=== PATIENT | male | born 1955 | race Caucasian/White ===

== ENCOUNTER 2018-05-02 10:54 | Day surgery (SDC) | payer OTHER ==
[~2018-05-02 10:54] MED LIST: ASPI81CH PO; Amlodipine Besyl5 MG PO; Hydrochloroth12.5 MG PO; METO50ER PO; MULVITMIND PO
[2018-05-02 12:15] LABS: Performing Lab VERACYTE; Test Name FNA
== END 2018-05-02 22:39 | disposition home or self-care (01) ==
LOC: US 10:54
PROVIDERS: Radiology Diagnostic Radiology
PROC: 0GBH3ZX Excision of Right Thyroid Gland Lobe, Percutaneous Approach, Diagnostic (ICD-10-PCS; principal; 2018-05-02)
DX: E04.1 Nontoxic single thyroid nodule (principal); Z85.6 Personal history of leukemia
CPT/HCPCS: 10022; 76942

== ENCOUNTER 2018-07-18 09:30 | Day surgery (SDC) | payer OTHER ==
[~2018-07-18 09:30] MED LIST changes: +CYCL10 PO; +OXYC1TAB11; +Percocet 5-3251 EACH PO
== END 2018-07-18 22:41 | disposition home or self-care (01) ==
LOC: CT 09:30
PROC: 0QB03ZX Excision of Lumbar Vertebra, Percutaneous Approach, Diagnostic (ICD-10-PCS; principal; 2018-07-18)
DX: M89.9 Disorder of bone, unspecified (principal); C91.00 Acute lymphoblastic leukemia not having achieved remission; C34.31 Malignant neoplasm of lower lobe, right bronchus or lung; C77.3 Secondary and unspecified malignant neoplasm of axilla and upper limb lymph nodes; C77.2 Secondary and unspecified malignant neoplasm of intra-abdominal lymph nodes; C77.1 Secondary and unspecified malignant neoplasm of intrathoracic lymph nodes; Z87.891 Personal history of nicotine dependence; I10 Essential (primary) hypertension; C91.10 Chronic lymphocytic leukemia of B-cell type not having achieved remission
CPT/HCPCS: 20225; 77012; 88305; 88341; 88342

== ENCOUNTER 2018-08-01 00:04 | Emergency (ER) | payer OTHER ==
[~2018-08-01] VITALS: Ht 182.9 cm; Wt 85.7 kg
[2018-08-01 00:27] LABS: BASOPHILS ABSOLUTE AUTO 0.03 K/mm3 (0.00-0.23); BASOPHILS PERCENT AUTO 0 % (0-2); EOSINOPHILS ABSOLUTE AUTO 0.28 K/mm3 (0.00-0.68); EOSINOPHILS PERCENT AUTO 2 % (0-6); Hematocrit 43.5 % (37.0-53.0); Hemoglobin 14.8 g/dL (13.5-17.5); IMMATURE GRAN ABSOLUTE AUTO 0.08 K/mm3 (0.00-0.10); IMMATURE GRAN PERCENT AUTO 1 % (0-1); LYMPHOCYTES ABSOLUTE AUTO 0.65 K/mm3 (0.84-5.20); LYMPHOCYTES PERCENT AUTO 4 % (21-46); MONOCYTES ABSOLUTE AUTO 1.97 K/mm3 (0.16-1.47); MONOCYTES PERCENT AUTO 12 % (4-13); Mean Corpuscular HGB 29.7 pg (26.0-34.0); Mean Corpuscular Volume 87 fL (80-100); Mean Platelet Volume 11.1 fL (9.1-12.4); NEUTROPHILS ABSOLUTE AUTO 13.06 K/mm3 (1.96-9.15); NEUTROPHILS PERCENT AUTO 81 % (41-73); Platelet Count 229 K/mm3 (150-400); RDW Coefficient Variation 13.8 % (11.7-14.2); RDW Standard Deviation 43.7 fL (35.1-46.3); Red Blood Cell Count 4.99 M/mm3 (4.30-5.90); White Blood Cell Count 16.07 K/mm3 (4.00-11.30)
[2018-08-01 00:45] LABS: Calcium, Ionized (POC) 1.12 mmol/L (1.10-1.46); Chloride (POC) 100 mmol/L (98-108); Glucose (ISTAT POC) 137 mg/dL (70-99); Hemoglobin (POC) 12.6 g/dL (13.5-17.5); Potassium (POC) 3.7 mmol/L (3.5-5.5); Sodium (POC) 135 mmol/L (135-148); Total CO2 (POC) 22 mmol/L (21-32)
[2018-08-01 00:47] LABS: Alanine Aminotransfer (ALT/SGP 51 U/L (12-78); Albumin, Blood 3.4 g/dL (3.4-5.0); Albumin/Globulin Ratio 0.9 (0.8-1.8); Alk Phos 152 U/L (50-136); Anion Gap 12 mmol/L (6-16); Aspartate Aminotrans (AST/SGOT 28 U/L (12-37); Bilirubin, Total 0.6 mg/dL (0.1-1.0); Blood Urea Nitrogen 22 mg/dL (8-24); Bun/Creatinine Ratio 19.6 (12.0-20.0); CO2, Blood 24 mmol/L (21-32); Chloride, Blood 101 mmol/L (98-108); Creatinine, Blood 1.12 mg/dL (0.60-1.20); Globulin, Blood 3.7 g/dL (2.2-4.0); Glomerular Filtration Rate >60 (60-); Glucose, Blood 135 mg/dL (70-99); Potassium, Blood 3.9 mmol/L (3.5-5.5); Sodium, Blood 137 mmol/L (136-145); Total Protein, Blood 7.1 g/dL (6.4-8.2)
[2018-08-01 02:22] LABS: International Normalized Ratio 1.03; Prothrombin Time Results 10.6 Sec (9.7-11.5)
== END 2018-08-01 03:21 | disposition short-term general hospital (02) ==
LOC: ER 00:04
PROVIDERS: Emergency Medicine
DX: J96.91 Respiratory failure, unspecified with hypoxia (principal); I26.92 Saddle embolus of pulmonary artery without acute cor pulmonale; J90 Pleural effusion, not elsewhere classified; E87.2 Acidosis; J98.4 Other disorders of lung; Z79.899 Other long term (current) drug therapy; Z79.82 Long term (current) use of aspirin; Z87.891 Personal history of nicotine dependence
CPT/HCPCS: 36415; 71045; 71260; 80047; 80053; 83605; 83880; 84484; 85014; 85025; 85610; 85730; 93005; 93010; 96365; 96367; 99285-25; J1644; J2543; J2997; J3370; J7030; Q9967

== ENCOUNTER 2018-10-21 14:43 | Day surgery (SDC) | payer OTHER ==
[~2018-10-21 14:43] MED LIST changes: +Acetaminophen325 M1 PO; +DEXA4 PO; +DOCU100 PO; +Dazidox10 MG PO; +GAVILAX17 GM PO; +LIDOCAINE 5% TOP; -OXYC1TAB11; +Oxycodone HCl20 M1 PO; +ROXICODONE5 MG PO; +SENN187 PO; +TEMA15 PO; +WARF5 PO; +XARELTO20 MG PO
== END 2018-10-21 22:46 | disposition home or self-care (01) ==
LOC: US 14:43
DX: J90 Pleural effusion, not elsewhere classified (principal); C34.31 Malignant neoplasm of lower lobe, right bronchus or lung; C78.7 Secondary malignant neoplasm of liver and intrahepatic bile duct
CPT/HCPCS: 76604

== ENCOUNTER 2018-10-23 16:05 | Inpatient (IN) | payer OTHER ==
[~2018-10-23] VITALS: Ht 177.8 cm; Wt 73.2 kg
[2018-10-23 16:09] LABS: PCO2 Arterial 32.8 mmHg (35-45); pH Blood Arterial 7.36 (7.35-7.45)
[2018-10-23 16:10] LABS: PO2 Arterial 48.8 mmHg (80-100)
[2018-10-23 16:20] LABS: BASOPHILS ABSOLUTE AUTO 0.02 K/mm3 (0.00-0.23); BASOPHILS PERCENT AUTO 0 % (0-2); EOSINOPHILS ABSOLUTE AUTO 0.01 K/mm3 (0.00-0.68); EOSINOPHILS PERCENT AUTO 0 % (0-6); Hematocrit 29.9 % (37.0-53.0); Hemoglobin 9.4 g/dL (13.5-17.5); IMMATURE GRAN ABSOLUTE AUTO 0.16 K/mm3 (0.00-0.10); IMMATURE GRAN PERCENT AUTO 1 % (0-1); LYMPHOCYTES ABSOLUTE AUTO 0.18 K/mm3 (0.84-5.20); LYMPHOCYTES PERCENT AUTO 2 % (21-46); MONOCYTES ABSOLUTE AUTO 1.12 K/mm3 (0.16-1.47); MONOCYTES PERCENT AUTO 9 % (4-13); Mean Corpuscular HGB 29.3 pg (26.0-34.0); Mean Corpuscular HGB Conc 31.4 g/dL (31.5-36.5); Mean Corpuscular Volume 93 fL (80-100); Mean Platelet Volume 10.6 fL (9.1-12.4); NEUTROPHILS ABSOLUTE AUTO 10.59 K/mm3 (1.96-9.15); NEUTROPHILS PERCENT AUTO 88 % (41-73); NRBC ABSOLUTE 0.08 K/mm3 (0.00-0.02); NRBC Auto 0.7 /100 WBC (0.0-0.2); Platelet Count 237 K/mm3 (150-400); RDW Coefficient Variation 20.1 % (11.7-14.2); RDW Standard Deviation 54.6 fL (35.1-46.3); Red Blood Cell Count 3.21 M/mm3 (4.30-5.90); White Blood Cell Count 12.08 K/mm3 (4.00-11.30)
[2018-10-23] MEDS ORDERED: METO50 PO (16:34)
[2018-10-23] MEDS ORDERED: FOLI400 PO (16:35)
[2018-10-23 16:37] LABS: Alanine Aminotransfer (ALT/SGP 56 U/L (12-78); Albumin, Blood 2.7 g/dL (3.4-5.0); Albumin/Globulin Ratio 0.8 (0.8-1.8); Alk Phos 243 U/L (50-136); Anion Gap 13 mmol/L (6-16); Aspartate Aminotrans (AST/SGOT 43 U/L (12-37); Bilirubin, Total 0.6 mg/dL (0.1-1.0); Blood Urea Nitrogen 27 mg/dL (8-24); Bun/Creatinine Ratio 50.4 (12.0-20.0); CO2, Blood 18 mmol/L (21-32); Calcium, Blood 7.3 mg/dL (8.5-10.1); Chloride, Blood 100 mmol/L (98-108); Creatinine, Blood 0.54 mg/dL (0.60-1.20); Globulin, Blood 3.5 g/dL (2.2-4.0); Glomerular Filtration Rate >60 (60-); Glucose, Blood 298 mg/dL (70-99); Potassium, Blood 5.2 mmol/L (3.5-5.5); Sodium, Blood 131 mmol/L (136-145); Total Protein, Blood 6.2 g/dL (6.4-8.2)
[2018-10-23 17:24] LABS: Source, Urine Catheter
[2018-10-23 17:48] LABS: Appearance, Urine Clear (Clear); Bilirubin, Urine Neg (Neg); Blood, Urine 1+ (Neg); Color, Urine Yellow (P-Yellow); Glucose Qualitative, Urine 3+ (Neg); Ketones, Urine 1+ (Neg); Leukocyte Esterase, Urine Neg (Neg); Nitrite, Urine Neg (Neg); Protein, Urine 2+ (Neg); Urobilinogen, Urine 2+ (Normal)
[2018-10-23 17:59] LABS: Red Blood Cells, Urine 0-2 /hpf (0-2); White Blood Cells, Urine 0-2 /hpf (0-5)
[2018-10-23 18:00] LABS: Bacteria Not Seen /hpf; Squamous Epithelial Cells Few /hpf (Few)
--- NOTE | 2018-10-23 20:00 | NUR ---
Admission/[facility] of Care: Patient arrived to unit via stretcher accompanied by ED nurse and RT. Arrived on BiPAP 10/08, 40% FiO2, O2-93-96%, all other VSS. Pt tolerated very short break from BiPAP to take PO pills, but work of breathing slowly increased while off mask. Pt states to feel slightly SOB, but that breathing has greatly improved since arrival to ED. C/o chronic pain to back and hips, plan to give prn oxycodone. Peripheral IV's patent and intact. Heparin bolus given (5,000u), and gtt started at 15u/kg/hr dosed at 75kg. Pleasant and cooperative with staff, call light in reach, makes needs known. Will continue to monitor for pain, comfort, safety.
[2018-10-23 21:08] LABS: PCO2 Arterial 31.3 mmHg (35-45); PO2 Arterial 82.5 mmHg (80-100); pH Blood Arterial 7.47 (7.35-7.45)
[2018-10-23] MEDS ORDERED: Oxycontin20 MG PO (21:30)
[2018-10-23] MEDS ORDERED: LORA.5 PO (21:33)
[2018-10-24 03:32] LABS: BASOPHILS ABSOLUTE AUTO 0.01 K/mm3 (0.00-0.23); BASOPHILS PERCENT AUTO 0 % (0-2); EOSINOPHILS PERCENT AUTO 0 % (0-6); Hematocrit 26.4 % (37.0-53.0); Hemoglobin 8.5 g/dL (13.5-17.5); IMMATURE GRAN ABSOLUTE AUTO 0.09 K/mm3 (0.00-0.10); IMMATURE GRAN PERCENT AUTO 1 % (0-1); LYMPHOCYTES ABSOLUTE AUTO 0.24 K/mm3 (0.84-5.20); LYMPHOCYTES PERCENT AUTO 3 % (21-46); MONOCYTES ABSOLUTE AUTO 0.82 K/mm3 (0.16-1.47); MONOCYTES PERCENT AUTO 9 % (4-13); Mean Corpuscular HGB Conc 32.2 g/dL (31.5-36.5); NEUTROPHILS ABSOLUTE AUTO 8.23 K/mm3 (1.96-9.15); NEUTROPHILS PERCENT AUTO 88 % (41-73); Platelet Count 155 K/mm3 (150-400); RDW Coefficient Variation 20.2 % (11.7-14.2); RDW Standard Deviation 52.2 fL (35.1-46.3); Red Blood Cell Count 2.93 M/mm3 (4.30-5.90); White Blood Cell Count 9.39 K/mm3 (4.00-11.30)
[2018-10-24 03:47] LABS: Mean Corpuscular Volume 90 fL (80-100)
[2018-10-24 03:49] LABS: Albumin, Blood 2.5 g/dL (3.4-5.0); Anion Gap 12 mmol/L (6-16); Blood Urea Nitrogen 18 mg/dL (8-24); Bun/Creatinine Ratio 34.2 (12.0-20.0); CO2, Blood 22 mmol/L (21-32); Calcium, Blood 7.1 mg/dL (8.5-10.1); Chloride, Blood 102 mmol/L (98-108); Creatinine, Blood 0.53 mg/dL (0.60-1.20); Glomerular Filtration Rate >60 (60-); Glucose, Blood 114 mg/dL (70-99); Potassium, Blood 4.8 mmol/L (3.5-5.5); Sodium, Blood 136 mmol/L (136-145)
[2018-10-24 05:05] LABS: PCO2 Arterial 27.5 mmHg (35-45); pH Blood Arterial 7.51 (7.35-7.45)
--- NOTE | 2018-10-24 05:46 | NUR ---
Shift Summary: Patient continued on BiPAP 10/05, FiO2 decreased from 40% to 30% throughout shift. Patient could only tolerate very short break from BiPAP early in shift, but has now been of BiPAP for approx 1hr, now on 15L/high-flow NC, tolerating well. Dyspnea/SOB with exertion but states to fell comfortable at rest. O2- 92-97%, VSS. No further c/o pain/discomfort at rest, but some pain to back/hips with repositioning. Tolerating PO fluids without difficulty, voiding using urinal in bed. Peripheral IV's patent and intact. Morning labs showed phosphorus 2.0, received order per Dr. Melo for PO neutra-phos 250mg x1. PTT this morning of 44.7, heparin gtt increased from 15u/kg/hr to 17u/kg/hr per pharmacy, next PTT at 1100hr. Pleasant and cooperative with staff, makes needs known. Will continue to monitor until report to day shift RN.
--- NOTE | 2018-10-24 08:48 | NUR ---
0700: CARE ASSUMED, PT REPOSITIONED IN BED, SPO2 DECREASED TO 87% WITH MAX ASSIST TO REPOSITION, SLOWLY RETURNS TO 97% WITH REST AND NO MOVEMENT OR TALKING. RR 30'S, SPO2 NOW 97% ON 15L/HI FLOW NC. HEPARIN INFUSING AT 17U/KG/HR PER ORDERS. DR. FONSECA IN TO SEE PT, AT BEDSIDE. 0800: ASSESSMENT COMPLETED, HR 120'S SINUS TACH, OTHER VSS AT THIS TIME. PT DENIES CHEST PAIN/PRESSURE, OR OTHER PAIN, REMAINS EXTREMELY SOB WITH ANY MOVEMENT OR TALKING, ONLY ABLE TO SPEAK IN 3-4 WORD SENTENCES. LE'S ELEVATED ON PILLOWS, TOES ON RIGHT FOOT PURPLE IN COLOR, COOL TO TOUCH, CAP REFILL SLUGGISH. TOES ON LEFT FOOT DARK PURPLE, COLD TO TOUCH, CAP REFILL SLUGGISH, DR. FONSECA AWARE. PT RECEIVING BEDSIDE ECHO AT THIS TIME. 0830: DR. FLETCHER IN TO SEE PT AND TO CONSULT WITH DR. FONSECA. ECHO COMPLETED, TOLERATED WELL BY PT. SPO2 97%, PT RESTING WITH EYES CLOSED.
--- NOTE | 2018-10-24 09:56 | NUR ---
0955: ORAL MEDICATIONS TOLERATED WELL, PT ABLE TO TAKE THEM WITHOUT DESAT.PT RECEIVING DOPPLER US AT THIS TIME. HR 115, OTHER VSS.
--- NOTE | 2018-10-24 10:23 | NUR ---
1015: US COMPLETED, DR. FLETCHER AWARE OF PRELIMINARY RESULTS. DR. ACUÑA AT BEDSIDE TO DISCUSS PLAN OF CARE WITH PT AND CONSULT WITH DR. FLETCHER.
--- NOTE | 2018-10-24 12:13 | NUR ---
1200: 'Marti HAVE DISCUSSED PLAN OF CARE AND PROGNOSIS WITH PT, CODE STATUS CHANGED TO DNR/DNI. PT REPOSITIONED IN BED, HEPARIN GTT DC'D, LOVENOX ADMINISTERED PER ORDERS. PT'S FAMILY MEMBER AT BEDSIDE, PT DENIES OTHER NEEDS AT THIS TIME.
--- NOTE | 2018-10-24 14:40 | NUR ---
1330: PUDDING AND CHICKEN BROTH GIVEN PER PT REQUEST, PT DENIES OTHER NEEDS. 1420: NASAL SPRAY ADMINISTERED PER ORDERS FOR NASAL CONGESTION, OXYCODONE ADMINISTERED FOR BACK PAIN 03/10. PT DENIES OTHER NEEDS AT THIS TIME, CONTINUES TO EAT PUDDING, DENIES NAUSEA/ABDOMINAL DISCOMFORT.
--- NOTE | 2018-10-24 17:20 | NUR ---
1600: BED BATH GIVEN, HAIR WASHED, PT BRUSHED OWN TEETH, LINENS CHANGED. PT TOLERATED MODERATELY WELL, SPO2 DECREASED TO 88% AT FINISH OF CARES, PT RECOVERED TO MID 90% AFTER 5 MINUTES OF REST. PT REPOSITIONED IN BED, IS NOW RESTING QUIETLY, HR 110'S, SPO2 HIGH 90% ON HEATED HI FLOW NC, SETTINGS REMAIN 40L, FIO2 50%, 34 DEGREES. PT DENIES NEEDS AT THIS TIME.
--- NOTE | 2018-10-24 18:23 | NUR ---
1800: PT HAS BEEN RESTING IN BED WIT EYES CLOSED, VSS. DINNER TRAY ARRIVED, PT REPOSITIONED AND SAT UP IN BED TO EAT, DENIES NEEDS OR C/O. 1825: PT REPORTS THAT "NOTHING TASTES GOOD," ONLY BITES OF DINNER TRAY EATEN. AT BEDSIDE WITH SNACKS TO ENCOURAGE PT TO EAT. VSS, SPO2 95% HEATED HI FLOW NC, SETTINGS UNCHANGED. HR 120'S, OTHER VSS. PT AWAKE AND ALERT, PLEASANT AND COOPERATIVE WITH CARE, DENIES NEEDS AT THIS TIME. REPORT TO ONCOMING SHIFT.
--- NOTE | 2018-10-24 19:34 | NUR ---
ASSUMED CARE OF PT, BEDSIDE REPORT RECEIVED. PT IS RESTING QUIETLY RECLINING IN BED. DENIES N/V, DENIES CP/PRESSURE, STATES SOB/DYSPNEA CONTINUES BUT IS IMPROVING SLOWLY. SATS MAINTAINING WITH HEATED HIGH FLOW O2, SENTANCES ARE SHORT WITH INCREASED WORK OF BREATHING VISIBLE AFTER TURNING PT TO REMOVE BEDPAN. SPOUSE AT BEDSIDE. HRR, SINUS TACH ON MONITOR, BP MAINTAINING, TOES TO BILAT FEET ARE PURPLE, FEET ARE PALE AND COOL, PULSES ARE FAINT BUT PALPABLE. ABD SOFT, NONTENDER, BOWEL TONES NORMOACTIVE X 4.
--- NOTE | 2018-10-25 06:31 | NUR ---
PT CONTINUES TO MAINTAIN SATS WITH HIGH FLOW NASAL CANNULA AT 40 L/MIN AND FIO2 OF 50%. INCREASED WORK OF BREATHING CONTINUES TO BE EVIDENT WITH INCREASES IN ACTIVITY HOWEVER PT STATES THAT HE FEELS HIS BREATHING HAS IMPROVED. DENIES N/V THROUGHOUT SHIFT, DENIES CP/PRESSURE, DOES HAVE BACK PAIN AND WAS MEDICATED WITH OXYCODONE 10 MG PRIOR TO HS MEDS, PAIN WAS CONTROLLED TO 3/10, PAIN REMAINED CONTROLLED AT 0500 THIS AM.
--- NOTE | 2018-10-25 09:28 | NUR ---
0715: CARE ASSUMED, ASSESSMENT COMPLETED. PT A&OX4, HOB ELEVATED, PT ABLE TO SPEAK IN FULL SENTENCES THIS MORNING. HR 110-120'S, SPO2 95% WHILE SPEAKIN ON HEATED HI FLOW NC 40L, FIO2 49%, TEMP 34 DEGREES. BILAT ANKLES REMAIN EDEMATOUS, CYANOSIS TO TOES ON BOTH FEET SEEMS TO BE DECREASING, TOES ARE WARM TO TOUCH. LS DIM ON RIGHT, CLEAR ON LEFT. DR. FONSECA AT BEDSIDE. 0810: PT SITTING UP IN BED FOR BREAKFAST, REPORTS BILAT LEG AND BACK PAIN 6/10, MEDICATED WITH OXYCODONE PER ORDERS. PT DENIES OTHER NEEDS. 0920: PT'S APPETITE GOOD THIS MORNING, TOLERATED BREAKFAST WELL. SPO2 97% AFTER EATING, PT REMAINS ABLE TO SPEAK IN FULL SENTENCES.
--- NOTE | 2018-10-25 12:22 | NUR ---
1000: PT RESTING IN BED WITH EYES CLOSED, SNORING LIGHTLY. SP02 97%, PT RESPIRATIONS EVEN AND UNLABORED, PT APPEARS COMFORTABLE. 1210: PT SITTING UP IN BED, REPORTS BACK AND BILAT LEG PAIN 4/10, OXYCODONE ADMINISTERED PER ORDERS. LUNCH GIVEN, PT AND HIS EATING LUNCH IN ROOM TOGETHER. PT DENIES OTHER NEEDS. LS REMAIN UNCHANGED, HR 80'S - 90'S SINUS RHYTHM, SPO2 HIGH 90'S, HEATED HIGH FLOW NC REMAINS UNCHANGED.
--- NOTE | 2018-10-25 14:10 | NUR ---
1330: DR. GAMING AT BEDSIDE. 1400: PT ASSISTED ONTO BEDPAN FOR A SMALL, SOFT BM. SPO2 DECREASED TO 89%, PT RECOVERED QUICKLY WITH REST AND HOB ELEVATED. PT DENIES OTHER NEEDS AT THIS TIME.
--- NOTE | 2018-10-25 16:29 | NUR ---
1620: VSS, O2 SETTINGS UNCHANGED, PT DENIES SOB AT THIS TIME NO COUGH NOTED. PT REPORTS BACK AND LE PAIN 5/10, MEDICATED WITH OXYCODONE PER ORDERS. PT DENIES OTHER NEEDS AT THIS TIME. LS UNCHANGED, HR 80'S - 90'S NSR, TOES WARM AND COLOR CONTINUES TO IMPROVE.
--- NOTE | 2018-10-25 17:45 | NUR ---
1745: BED BATH GIVEN, PT TOLERATED WELL, SPO2 95% AFTER COMPLETION OF BATH. GOWN AND BEDDING CHANGED, PT REPOSITIONED, IS NOW SITTING UP IN BED EATING DINNER. DENIES NEEDS AT THIS TIME, VSS.
--- NOTE | 2018-10-25 18:23 | NUR ---
1814: DINNER TOLERATED WELL, PT'S APPETITE IMPROVED TODAY FROM YESTERDAY. PT DRANK 100% OF ENSURE. TEETH BRUSHED, PT REPOSITIONED FOR COMFORT, IS NOW SITTING UP IN BED WATCHING TV, DENIES NEEDS AT THIS TIME. HR 110-120, OTHER VSS. REPORT TO ONCOMING SHIFT.
--- NOTE | 2018-10-25 20:18 | NUR ---
ASSUMED CARE PT ALERT AND ORIENTED X4. PT REPORTS GENERALIZED WEAKNESS BUT STATES HE HAS BEEN BETTER ABLE TO REPOSITION SELF TODAY. PT DENIES PAIN AT THIS TIME. O2 SATS 96% ON HFNC, 40L/49%/34 DEGREES. PT'S AT BEDSIDE. 18 G IV IN R AC SL. PT HAS CYANOTIC TOES BILATERALLY. TOES FEEL WARM TO THE TOUCH AND PER OFF GOING NURSE PT'S COLOR HAS VASTLY IMPROVED. SEE FULL SHIFT ASSESSMENT.
--- NOTE | 2018-10-26 02:06 | NUR ---
REPORT FROM KILO ADLER. PT VSS. PT HAD REQUESTED CURTAINS CLOSED AND LIGHTS OUT PER KILO ADLER. WILL RESPECT PT REQUEST AND ALLOW TO SLEEP. WILL CONTINUE TO MONITOR.
--- NOTE | 2018-10-26 03:45 | NUR ---
PT AWAKENED EASILY TO TELEMARKETER AT BEDSIDE. INTRODUCED SELF TO PT. PT A+O X4 AND PLEASANT. VSS. RETURNED CURTAIN TO CLOSE AND LIGHTS OUT PER PT REQUEST.
[2018-10-26 04:13] LABS: BASOPHILS ABSOLUTE AUTO 0.01 K/mm3 (0.00-0.23); BASOPHILS PERCENT AUTO 0 % (0-2); EOSINOPHILS ABSOLUTE AUTO 0.03 K/mm3 (0.00-0.68); EOSINOPHILS PERCENT AUTO 0 % (0-6); Hematocrit 27.8 % (37.0-53.0); Hemoglobin 8.5 g/dL (13.5-17.5); IMMATURE GRAN ABSOLUTE AUTO 0.09 K/mm3 (0.00-0.10); IMMATURE GRAN PERCENT AUTO 1 % (0-1); LYMPHOCYTES ABSOLUTE AUTO 0.51 K/mm3 (0.84-5.20); LYMPHOCYTES PERCENT AUTO 5 % (21-46); MONOCYTES ABSOLUTE AUTO 1.23 K/mm3 (0.16-1.47); MONOCYTES PERCENT AUTO 12 % (4-13); Mean Corpuscular HGB 29.1 pg (26.0-34.0); Mean Corpuscular HGB Conc 30.6 g/dL (31.5-36.5); Mean Corpuscular Volume 95 fL (80-100); Mean Platelet Volume 10.1 fL (9.1-12.4); NEUTROPHILS PERCENT AUTO 81 % (41-73); Platelet Count 170 K/mm3 (150-400); RDW Coefficient Variation 21.8 % (11.7-14.2); RDW Standard Deviation 70.1 fL (35.1-46.3); Red Blood Cell Count 2.92 M/mm3 (4.30-5.90); White Blood Cell Count 10.07 K/mm3 (4.00-11.30)
[2018-10-26 04:38] LABS: Anion Gap 8 mmol/L (6-16); Blood Urea Nitrogen 17 mg/dL (8-24); Bun/Creatinine Ratio 31.7 (12.0-20.0); CO2, Blood 22 mmol/L (21-32); Calcium, Blood 7.2 mg/dL (8.5-10.1); Chloride, Blood 107 mmol/L (98-108); Creatinine, Blood 0.54 mg/dL (0.60-1.20); Glomerular Filtration Rate >60 (60-); Glucose, Blood 84 mg/dL (70-99); Potassium, Blood 4.8 mmol/L (3.5-5.5); Sodium, Blood 137 mmol/L (136-145)
--- NOTE | 2018-10-26 06:46 | NUR ---
REQUESTING TO LET SLEEP: PT REQUESTED TO LET SLEEP AFTER BEING AWAKENED FOR XRAY. WILL PASS PROTONIX ADMIN TO DAY SHIFT.
--- NOTE | 2018-10-26 07:22 | NUR ---
BEDSIDE REPORT TO MAURISIO RN TO ASSUME CARE AT THIS TIME. DR. FONSECA AT BEDSIDE.
--- NOTE | 2018-10-26 07:30 | NUR ---
ASSUMED CARE ASSUMED CARE OF PATIENT. PATIENT AWAKE WANTING TO BE SCOOTED UP IN BED. DR. GAMING HERE TO SEE PATIENT AND DISCUSS PLAN WITH PATIENT AND . PLAN TO CONTINUE TO ENCOURAGE ACTIVITY ABLE. CONTINUE TO MEDICATE FOR PAIN, TITRATE O2 TO PRE ADMISSION ABLE. CONTINUE TO ENCOURAGE TURNING IN BED, WILL CONTINUE TO MONITOR SKIN INTEGRETY AND PROVIDE SKIN CARE. WILL NOTIFY PHYSICIANS OF ANY CHANGES.
--- NOTE | 2018-10-26 09:44 | NUR ---
PT WORKING WITH PT. CONSERNED ABOUT DISCHARGE PLAN AND SAFETY TRANSFERING. PALIATIVE CARE AND BUTTON INSPECTOR CONTACTED TO HELP WITH HER CONCERNS. PATIENT CONTINUES TO VERBALIZES DESIRE TO CONTINUE "FIGHTING". CONTINUES TO AGREE TO DNR. PRESENT FOR DISCUSION AND IN AGREEMENT.
--- NOTE | 2018-10-26 11:30 | NUR ---
Abdias was alert, friendly and communicative, and appeared well supported and managed. His was present showing concern and offering attention. I enaged them in conversation, and created an opportunity for disclosure and reminiscence. The couple openly discussed Abdias bleek and difficult medical situation, and verbalized thier concerns and worries. I administered psychological first aid, and provided encouragement and compassionate listening. I also assisted them in completing an FPOA. They expressed gratitude.
--- NOTE | 2018-10-26 16:22 | NUR ---
Met with and pt in room to discuss their questions re: supportive care and some options for improved safety at home. Pt/ would like information on life alert systems. Referral for Care Managers placed earlier today for both dc planning and care options. Pt had a telephone interview with Social Security today and his RN is working on gathering records to assist with application for SS disability. Release of information signed by pt and given to RN. We discussed pt's desired code status and per his request completed a POLST. This was placed on chart for signature. Pt is struggling with these conversations and decisions but is grateful to be making progress on SS application and documenting wishes. expressing CG fatigue and feeling overwhelmed. Both were given emotional support and encouragement. They are both appreciative of staff's help with these identified needs and their care. Palliative Care will f/u daily if possible and complete recording of POLST documentation to pt's EMR once signed by . Pt denies need for additional s/s management or other issues at this time.
--- NOTE | 2018-10-26 17:10 | NUR ---
NURSING PCU DAYSHIFT SUMMARY: Assumed care of pt at approx 1645. Arrived from ICU via bed accompanied by RN. Pt oriented to room and unit, denies any questions. Pt is resting comfortably at this time. Respiratory status stable on 8L HF NC, denies dyspnea. Tele in place, ST, BP stable. Pt denies any needs at this time. Call light remains in reach which pt is able to use w/o difficulty. Cont to monitor until rpt is given to NOC RN.
--- NOTE | 2018-10-27 05:38 | NUR ---
SHIFT SUMMARY PT SLEPT T/O SHIFT, WAKING EASILY FOR VITALS AND ASSESSMENTS. HE HAD SOME PAIN EARLY IN SHIFT, BUT IT CLEARED PER PATIENT, WITH THE ADMINISTRATION OF ORDERED PAIN MEDS. PT HAS BEEN COMMUNICATING WITH STAFF EFFECITVELY AND DEMONSTRATED APPROPRIATE USE OF HIS CALL LIGHT. PT DENIED ANY UNMET NEEDS AND CONTINUES TO BE PLEASANT AND COOPERATIVE DURING ASSESSMENTS AND VITALS. HE HAS BEEN IN BED ALL NIGHT, HAS NOT BEEN UP THIS SHIFT. HE HAS 2X SIDE RAILS IN PLACE, BED IN LOWEST POSITION AND CALL LIGHT WITHIN REACH. THERE WERE NO ACUTE CHANGES TO VITALS OR LOC DURING THE NIGHT. HE WILL CONTINUE TO BE MONIOTRED UNTIL HANDOFF TO DAYSHIFT RN.
--- NOTE | 2018-10-27 09:28 | NUR ---
NURSING PCU DAYSHIFT: Assumed care of pt at approx 0700. A/O, pleasant, cooperative w/care. C/O low back pain, treatment w/meds and positioning. Redness noted to buttocks and spine, mepilex dressings in place. B/L toes purple/black, no drainage noted. Tele in place, ST, no c/o CP/pressure, BP stable, no noted edema. L/S dim t/o, respirations shallow and labored, O2 sat mid 90's on 8L NC, no noted cough this a.m. BT+, voiding w/o difficulty per pt. PIV x1, s/l. No s/s of acute distress at this time. Seen by PMD, discharge home d/o received. Spoke w/care management to schedule transportation home as well as HH. S/O currently at bedside. Cont to monitor until discharge is complete.
[2018-10-27] MEDS ORDERED: ENOX80I SC (09:30)
--- NOTE | 2018-10-27 12:28 | NUR ---
NURSING PCU DISCHARGE SUMMARY: No significant changes noted t/o the shift. Pt has been resting fairly comfortable w/spouse at bedside t/o the a.m. Care management in room to discuss discharge plans. [facility] transportation scheduled for approx 1300. Pt and s/o verbalized understanding of all written and verbal discharge instructions provided by CN. PIV dc'd w/cath intact. Awaiting ambulance transport, cont to monitor until discharge is complete.
--- NOTE | 2018-10-27 15:53 | NUR ---
Pain is controled. No issues reported by patient.
== END 2018-10-27 13:32 | disposition home or self-care (01) | DRG 175 ==
LOC: ER 16:05 → ICUW 19:20 → PCU 10-26 16:49
PROVIDERS: Family Medicine; Hospitalist; Internal Medicine; ADMIT Internal Medicine
DX: I26.99 Other pulmonary embolism without acute cor pulmonale (principal); J96.21 Acute and chronic respiratory failure with hypoxia; C34.90 Malignant neoplasm of unspecified part of unspecified bronchus or lung; J91.0 Malignant pleural effusion; C78.7 Secondary malignant neoplasm of liver and intrahepatic bile duct; C79.51 Secondary malignant neoplasm of bone; E87.1 Hypo-osmolality and hyponatremia; I82.413 Acute embolism and thrombosis of femoral vein, bilateral; R65.10 Systemic inflammatory response syndrome (SIRS) of non-infectious origin without acute organ dysfunction; Z98.52 Vasectomy status; Z92.21 Personal history of antineoplastic chemotherapy; Z92.3 Personal history of irradiation; L71.9 Rosacea, unspecified; Z87.891 Personal history of nicotine dependence; I10 Essential (primary) hypertension
CPT/HCPCS: 36415; 36600; 51701; 71045; 71260; 80048; 80053; 80069; 81001; 82803; 83605; 83880; 84145; 84484; 85025; 85379; 85730; 87040; 93005; 93010; 93306; 93970; 94644; 94660; 94762; 96361; 96365; 96375; 97162; 97530; 99285-25; C9113; G8978; G8979; J0696; J1644; J1650; J1956; J2060; J3010; J7120; Q9967

== ENCOUNTER → 2019-02-06 | Outpatient (CLI) | payer MEDICARE, OTHER ==
[~2019-02-06] MED LIST changes: +ENOX80I SC; +FOLI400 PO; +LORA.5 PO; +METO50 PO; +Oxycontin20 MG PO
== END | disposition home or self-care (01) ==
LOC: PLD 12:54 → LAB SHORT 12:54
DX: M86.179 Other acute osteomyelitis, unspecified ankle and foot (principal); L97.509 Non-pressure chronic ulcer of other part of unspecified foot with unspecified severity; M79.673 Pain in unspecified foot; I96 Gangrene, not elsewhere classified; L97.519 Non-pressure chronic ulcer of other part of right foot with unspecified severity; L03.031 Cellulitis of right toe
CPT/HCPCS: 88305; 88311

== ENCOUNTER 2019-02-22 05:07 | Observation (INO) | payer MEDICARE, OTHER ==
[~2019-02-22] VITALS: Ht 177.8 cm; Wt 73.5 kg
[2019-02-22 06:09] LABS: Blood, Urine 5+ (Neg); Glucose Qualitative, Urine Neg (Neg); Ketones, Urine 2+ (Neg); Leukocyte Esterase, Urine 1+ (Neg); Nitrite, Urine Neg (Neg); Protein, Urine 2+ (Neg); Source, Urine Clean Catch; Urobilinogen, Urine 3+ (Normal)
[2019-02-22 06:16] LABS: BASOPHILS ABSOLUTE AUTO 0.12 K/mm3 (0.00-0.23); BASOPHILS PERCENT AUTO 0 % (0-2); Hematocrit 20.7 % (37.0-53.0); Hemoglobin 6.4 g/dL (13.5-17.5); LYMPHOCYTES ABSOLUTE AUTO 0.83 K/mm3 (0.84-5.20); LYMPHOCYTES PERCENT AUTO 2 % (21-46); MONOCYTES ABSOLUTE AUTO 4.31 K/mm3 (0.16-1.47); MONOCYTES PERCENT AUTO 10 % (4-13); Mean Corpuscular HGB 33.7 pg (26.0-34.0); Mean Corpuscular HGB Conc 30.9 g/dL (31.5-36.5); Mean Corpuscular Volume 109 fL (80-100); NRBC ABSOLUTE 1.42 K/mm3 (0.00-0.02); NRBC Auto 3.2 /100 WBC (0.0-0.2); RDW Standard Deviation 101.1 fL (35.1-46.3)
[2019-02-22 06:22] LABS: Appearance, Urine Hazy (Clear); Bacteria Few /hpf; Bilirubin, Urine 2+ (Neg); Color, Urine Amber (P-Yellow); Red Blood Cells, Urine 25-50 /hpf (0-2); Squamous Epithelial Cells Few /hpf (Few)
[2019-02-22 06:24] LABS: EOSINOPHILS ABSOLUTE AUTO 0.01 K/mm3 (0.00-0.68); EOSINOPHILS PERCENT AUTO 0 % (0-6); IMMATURE GRAN ABSOLUTE AUTO 2.94 K/mm3 (0.00-0.10); IMMATURE GRAN PERCENT AUTO 7 % (0-1); NEUTROPHILS ABSOLUTE AUTO 35.89 K/mm3 (1.96-9.15); NEUTROPHILS PERCENT AUTO 81 % (41-73)
[2019-02-22 06:26] LABS: Platelet Count 21 K/mm3 (150-400)
[2019-02-22 06:34] LABS: International Normalized Ratio 2.04; Prothrombin Time Results 20.3 Sec (9.7-11.5)
[2019-02-22 06:52] LABS: Alanine Aminotransfer (ALT/SGP 677 U/L (12-78); Albumin, Blood 2.6 g/dL (3.4-5.0); Alk Phos 824 U/L (50-136); Anion Gap 14 mmol/L (6-16); Aspartate Aminotrans (AST/SGOT 1159 U/L (12-37); Bilirubin, Total 7.6 mg/dL (0.1-1.0); Blood Urea Nitrogen 56 mg/dL (8-24); Bun/Creatinine Ratio 66.2 (12.0-20.0); CO2, Blood 17 mmol/L (21-32); Calcium, Blood 7.7 mg/dL (8.5-10.1); Chloride, Blood 109 mmol/L (98-108); Creatinine, Blood 0.85 mg/dL (0.60-1.20); Globulin, Blood 2.6 g/dL (2.2-4.0); Glomerular Filtration Rate >60 (60-); Glucose, Blood 91 mg/dL (70-99); Potassium, Blood 5.2 mmol/L (3.5-5.5); Sodium, Blood 140 mmol/L (136-145); Total Protein, Blood 5.2 g/dL (6.4-8.2)
[2019-02-22] MEDS ORDERED: OXYC40ER PO (07:13)
[2019-02-22] MEDS ORDERED: METO50 PO (07:13)
[2019-02-22] MEDS ORDERED: DEXA4 PO (07:14)
[2019-02-22] MEDS ORDERED: ENOX80I SC (07:14)
[2019-02-22] MEDS ORDERED: SENN187 PO (07:14)
[2019-02-22] MEDS ORDERED: DOCUPRENE100 MG PO (07:14)
[2019-02-22] MEDS ORDERED: ACET325 PO (07:15)
[2019-02-22] MEDS ORDERED: LORA.5 PO (07:15)
[2019-02-22] MEDS ORDERED: OXYC10TA19 (07:15)
[2019-02-22] MEDS ORDERED: TEMA15 PO (07:15)
--- NOTE | 2019-02-22 10:03 | NUR ---
Called to ER to meet with Abdias and his family prior to being admitted to the floor. Abdias is laying on the stretcher in room 6 and appears uncomfortable. He is very pale, c/o SOB and pain under his left lower ribcage area. Family reports he can get very anxious when he has difficulty breathing. He is fatigued. Family and pt state they saw Dr. Chavez this past Wednesday and family reports that they have seen a rapid decline in his physical condition since then. Explained his SOB is multifactoral and likely caused from his cancer, anemia, ascites and the effusion that he has. Abdias states "I just want to be comfortable." His agrees that they want to focus on comfort at this time. Briefly discussed the blood transfusion and the pros and cons of receiving it. A blood transfusion may help with some of his SOB, however the effects would not be immediate. With his comorbidities the transfusion will not change the manager long term care outcome for him this was explained to Abdias and his family. They agree that he wants to be comfortable and to not go ahead with the transfusion. Pt with petechiae and bruising. Resp shallow and slightly labored. Pt c/o dry mouth. Requested for [employer] SEALER to medicate with roxinol prior to transfer to floor. Updated ER and receiving medical floor nurse. PC will follow up with pt and family once they are settled on medical floor and he is more comfortable. Plan will be to adjust medications as needed for comfort and come up with POC. Abdias said going home with hospice wasn't important to him. His was concerned that she would be the only caregiver and she wasn't sure she could care for him. Explained that first priority is getting him comfortable and settled. Will discuss possibility of dc with hospice services unless pt rapidly declines. ER visit was kept brief this morning as pt was SOB and was ready to go upstairs to be more comfortable.
--- NOTE | 2019-02-22 11:50 | NUR ---
Went to Ricky's room to see how he is settling into his room on medical floor. Nursing having difficulty treating his pain, SOB and anxiety. He has recently rec'd roxanol, ativan and a morphine neb. Nursing reports the ativan "Made him wild." At the time of my visit, Ricky is slightly aggitated, however it appears the medications are starting to work. He has his eyes closed and is leaing toward the right. He was attempting to pull at his oximizer mask, however several minutes into my visit he appeared to become much more relaxed. Repositioned him and got him a fan. Family, and son, given emotional support and counseled on EOL s/s they may see. Pt appears to be mottling around his right knee. His fingernail beds are dusky. His reports that he recently had some toes amputated and at the follow up appointment his toes were "purple." Discussed with her EOL signs and provided her with the [facility] comfort care services booklet. Discussed that mottling and aggitation are signs that he may be transitioning. His is tearful but appropriate. His son left to call some family members to update them. Comfort care cart ordered and provided with a sandwich. Ricky is appears to be much more comfortable at this time and his is much less anxious as well at the end of this visit. PC will continue to work on symptom management. Will wait to discuss discharge with hospice option at this point. It is difficult to determine if the aggitation Ricky experienced after receiving ativan is a reaction to the ativan, air hunger, or possibly terminal aggitation. Ricky's stated that he has taken PO ativan during the last week without any problems.
--- NOTE | 2019-02-22 16:45 | NUR ---
Present with at [facility]. She was crying and inconsolable. Held her and allowed her to weep and vent. Apparently, this happened very quickly and neither Abdias or Monica were prepared. She responded well to gentle bereavement supervisor counseling and guidance. I helped her make some phone calls and kept assuring her. I stayed with her until friends arrived. [facility] has been selected by spouse for arrangements. Monica was tearful and appropriate throughout visit. Friends appeared kind and devoted to seeing Monica through this. I provided Monica with home contact info, and offered bereavement supervisor counseling and guidance in the future.
== END 2019-02-22 14:08 ==
LOC: ER 05:07 → MEDS 05:08 → ENPENDDIS 14:13
PROVIDERS: Emergency Medicine; ADMIT Internal Medicine
DX: J96.01 Acute respiratory failure with hypoxia (principal); N48.89 Other specified disorders of penis; K72.90 Hepatic failure, unspecified without coma; C78.7 Secondary malignant neoplasm of liver and intrahepatic bile duct; C34.90 Malignant neoplasm of unspecified part of unspecified bronchus or lung; D68.9 Coagulation defect, unspecified; D50.0 Iron deficiency anemia secondary to blood loss (chronic)
CPT/HCPCS: 36415; 71046; 80053; 81001; 85025; 85384; 85610; 85730; 86850; 86900; 86901; 86923; 87077; 87086; 87186; 94640; 94760; 96374; 96375; 96376; 99285-25; G0378; J2060; J2270; J7050